=== PATIENT | male | born 1970 ===

== ENCOUNTER 2017-03-27 09:03 | Emergency (ER) | payer MEDICAID ==
[2017-03-27] MEDS ORDERED: ONDANSETRON 4 MG/2 ML VIAL IVP ONE (09:09)
[2017-03-27] MEDS ORDERED: LORazepam 2 MG/ML INJ IVP ONE (09:09)
[2017-03-27] MEDS ORDERED: PANTOPRAZOLE SODIUM 40 MG in NS 100 ML IV ONE (09:10)
[2017-03-27 09:18] VITALS: TEMP 98.8; O2SAT 95
--- NOTE | 2017-03-27 09:18 | EDPHY ---
H & P Time Seen by Provider: 03/27/17 09:10 HPI/ROS: CHIEF COMPLAINT: "I am drunk and I vomited" HISTORY OF PRESENT ILLNESS: 46-year-old male arrives by ambulance after in unknown female dropped him off at the [employer] in [place] from his home in [place]. Complaining of being acutely intoxicated and vomited a dark color. States that he and unknown woman drove from [place] to [place] in order to go to a liquor store. They subsequently stopped at [employer] at which point she told him to take 2 pills of unknown substance which he subsequently ingested. Within a few seconds of ingesting these pills he vomited. The personal car next to him called 911. He denies abdominal pain. Currently no nausea. No abdominal pain. No dizziness no lightheadedness. No melena or hematochezia. He is a self-described alcoholic. Denies suicidal homicidal ideation states that he would like assistance from detox PRIMARY CARE PROVIDER: no primary care provider REVIEW OF SYSTEMS: A ten point review of systems was performed and is negative with the exception of the items mentioned in the HPI PAST MEDICAL & SURGICAL HISTORY: Hepatitis, unknown type. Alcoholism. SOCIAL HISTORY:positive alcohol use, states that he has been binge drinking for the past 2 days PHYSICAL EXAM (Prior to examination, patient consented to physical exam, hands were washed and my usual and customary physical exam procedures followed) 1) GENERAL: Well-developed, well-nourished, alert and oriented. Appears to be in no acute distress. Smells of alcohol 2) HEAD: Normocephalic, atraumatic 3) HEENT: Pupils equal, round, reactive to light bilaterally. Sclera anicteric. Nasopharynx, oropharynx, clear, no lesions. Dried vomitus on his malik. 4) NECK: Full range of motion, no meningeal signs. 5) LUNGS: Clear auscultation bilaterally, no wheezes, no rhonchi, no retractions. 6) HEART: Regular rate and rhythm, no murmur, no heave, no gallop. 7) ABDOMEN: No guarding, no rebound, no focal tenderness, negative McBurney's, negative Arreola's, negative Rovsing's, negative peritoneal sign, I am unable to elicit any abdominal pain on exam 8) MUSCULOSKELETAL: Moving all extremities, no focal areas of tenderness, no obvious trauma. No peripheral edema or discoloration. 9) BACK: No CVA tenderness, no midline vertebral tenderness, no fluctuance, no step-off, no obvious trauma, no visual or palpable abnormality. 10) SKIN: No rash, no petechiae. 11) Psychiatric: Patient is oriented X 3, there is no agitation. DIFFERENTIAL DIAGNOSIS: in no particular include but limited to Blessing-Arriaga tear, esophageal varices, acute pancreatitis Constitutional: Initial Vital Signs Temperature (C) 37.1 C 03/27/17 09:14 Heart Rate 101 H 03/27/17 09:14 Respiratory Rate 18 03/27/17 09:14 Blood Pressure 123/103 H 03/27/17 09:14 O2 Sat (%) 95 03/27/17 09:14 O2 Delivery Mode Room Air Allergies/Adverse Reactions: No Known Allergies Allergy (Unverified 03/27/17 09:13) Home Medications: Medication Instructions Recorded NK [No Known Home Meds] 03/27/17 Medical Decision Making ED Course/Re-evaluation: 10 50 a.m.: Patient has been observed for a period of time in the emergency department. He has been resting comfortably he has been given IV fluids, IV Ativan, Zofran, IV Protonix and observed. No further episodes of emesis, no nausea, no abdominal pain. Most recent exam is abdomen is soft no guarding or rebound no epigastric discomfort. ER staff was initially unable to obtain laboratory studies on the patient. I requested further laboratory studies however he declines at this time states that he would like to [facility] 11:30 a.m.: Patient is observed being clinically sober awake alert oriented person place time events, clear speech, normal steady gait. He does not want to go to the [facility]. He will walk out of the emergency department. - Data Points Laboratory Results: Laboratory Results 03/27/17 11:00 03/27/17 11:00 03/27/17 03/27/17 03/27/17 11:00 11:00 09:20 WBC 8.31 10^3/uL 10^3/uL (3.80-9.50) RBC 5.33 10^6/uL 10^6/uL (4.40-6.38) Hgb 16.8 g/dL g/dL (13.7-17.5) Hct 47.6 % % (40.0-51.0) MCV 89.3 fL fL (81.5-99.8) MCH 31.5 pg pg (27.9-34.1) MCHC 35.3 g/dL g/dL (32.4-36.7) RDW 12.7 % % (11.5-15.2) Plt Count 169 10^3/uL 10^3/uL (150-400) MPV 10.2 fL fL (8.7-11.7) Neut % (Auto) 69.5 % % (39.3-74.2) Lymph % (Auto) 24.2 % % (15.0-45.0) Barry % (Auto) 5.1 % % (4.5-13.0) Eos % (Auto) 0.4 % L % (0.6-7.6) Baso % (Auto) 0.4 % % (0.3-1.7) Nucleat RBC Rel Count 0.0 % % (0.0-0.2) Absolute Neuts (auto) 5.79 10^3/uL 10^3/uL (1.70-6.50) Absolute Lymphs (auto) 2.01 10^3/uL 10^3/uL (1.00-3.00) Absolute Monos (auto) 0.42 10^3/uL 10^3/uL (0.30-0.80) Absolute Eos (auto) 0.03 10^3/uL 10^3/uL (0.03-0.40) Absolute Basos (auto) 0.03 10^3/uL 10^3/uL (0.02-0.10) Absolute Nucleated RBC 0.00 10^3/uL 10^3/uL (0-0.01) Immature Gran % 0.4 % % (0.0-1.1) Immature Gran # 0.03 10^3/uL 10^3/uL (0.00-0.10) Turbidity REJ Sodium 147 mEq/L H mEq/L REJ (134-144) Potassium 3.6 mEq/L mEq/L REJ (3.5-5.2) Chloride 110 mEq/L mEq/L REJ (97-110) Carbon Dioxide 23 mEq/l mEq/l REJ (22-31) Anion Gap 14 mEq/L mEq/L REJ (8-16) BUN 9 mg/dL mg/dL REJ (7-23) Creatinine 0.7 mg/dL mg/dL REJ (0.7-1.3) Estimated GFR > 60 REJ Glucose 87 mg/dL mg/dL REJ (70-100) Calcium 8.4 mg/dL L mg/dL REJ (8.5-10.4) Total Bilirubin REJ Conjugated Bilirubin REJ Unconjugated Bilirubin REJ AST REJ ALT REJ Alkaline Phosphatase REJ Total Protein REJ Albumin REJ Lipase REJ Specimen Hemolysis REJ Ethyl Alcohol REJ Medications Given: Discontinued Medications Pantoprazole Sodium 40 mg/ (Sodium Chloride) 100 mls @ 200 mls/hr IV EDNOW ONE Stop: 03/27/17 09:39 Last Admin: 03/27/17 09:30 Dose: 100 mls Sodium Chloride (Ns) 1,000 mls @ 0 mls/hr IV ONCE ONE PRN Reason: Wide Open Stop: 03/27/17 09:35 Last Admin: 03/27/17 09:30 Dose: 1,000 mls Lorazepam (Ativan Injection) 1 mg IVP EDNOW ONE Stop: 03/27/17 09:10 Last Admin: 03/27/17 09:32 Dose: 1 mg Ondansetron HCl (Zofran) 4 mg IVP EDNOW ONE Stop: 03/27/17 09:10 Last Admin: 03/27/17 09:29 Dose: 4 mg Departure - Departure Disposition: Home, Routine, Self-Care Clinical Impression: Alcoholic intoxication Qualifiers: Complication of substance-induced condition: uncomplicated Qualified Code(s): F10.920 - Alcohol use, unspecified with intoxication, uncomplicated Condition: Fair Instructions: Alcohol Intoxication (ED) Referrals: [facility] [Outside] - As per Instructions
[2017-03-27] MEDS ORDERED: NS 1,000 ML IV ONE (09:34)
[2017-03-27 11:05] LABS: % IMMATURE GRANULYOCYTES 0.4 % (0.0-1.1); ABSOLUTE IMMATURE GRANULOCYTES 0.03 10^3/uL (0.00-0.10); ADD DIFF? NO; ADD MORPH? NO; ADD SCAN? NO; ATYPICAL LYMPHOCYTE FLAG 10 (0-99); FRAGMENT RBC FLAG 0 (0-99); HEMATOCRIT 47.6 % (40.0-51.0); HEMOGLOBIN 16.8 g/dL (13.7-17.5); LEFT SHIFT FLG 0 (0-99); LIPEMIA HEMOLYSIS FLAG 90 (0-99); MEAN CELL HEMOGLOBIN 31.5 pg (27.9-34.1); MEAN CELL HEMOGLOBIN CONCENTR. 35.3 g/dL (32.4-36.7); MEAN CELL VOLUME 89.3 fL (81.5-99.8); MEAN PLATELET VOLUME 10.2 fL (8.7-11.7); PLATELET CLUMPS FLAG 0 (0-99); PLATELET COUNT 169 10^3/uL (150-400); RED BLOOD CELL COUNT 5.33 10^6/uL (4.40-6.38); RED CELL DISTRIBUTION WIDTH 12.7 % (11.5-15.2)
[2017-03-27 11:19] LABS: ANION GAP 14 mEq/L (8-16); CALCIUM 8.4 mg/dL (8.5-10.4); CARBON DIOXIDE 23 mEq/l (22-31); CHLORIDE 110 mEq/L (97-110); CREATININE 0.7 mg/dL (0.7-1.3); GLOMERULAR FILTRATION RATE > 60; GLUCOSE 87 mg/dL (70-100); POTASSIUM 3.6 mEq/L (3.5-5.2); SODIUM 147 mEq/L (134-144)
[2017-03-27 11:30] VITALS: BP 131/89; PULSE 89
[2017-03-27 11:42] VITALS: RESP 61
== END 2017-03-27 11:39 | disposition home or self-care (01) ==
DX: F10.920 Alcohol use, unspecified with intoxication, uncomplicated (principal)
CPT/HCPCS: 96374; J2060; J2405